=== PATIENT | female | born 1955 | race American Indian/Alaskan Native ===

== ENCOUNTER 2021-04-30 04:29 | Emergency (ER) | payer SELFPAY ==
--- NOTE | 2021-04-30 06:21 | Emergency Department Report ---
ED General Adult HPI - General Chief complaint: Altered Mental Status Stated complaint: ALTERED MENTAL STATUS PUI?: No Time Seen by Provider: 04/30/21 06:06 Source: patient, EMS Mode of arrival: Stretcher Limitations: Altered Mental Status - History of Present Illness Initial comments: Chief complaint: Found outside, possible intoxication HPI: This is a 66-year-old male with no significant past medical history who presents with cold exposure and possible alcohol intoxication. Patient discovered outside. Limited history obtained from EMS. Patient appears intoxicated. He keeps repeating his address. Discovered to be hypothermic. EMS wrapped left foot. Left foot covered in blood. -: unknown Consistency: constant Improves with: none Worsens with: none - Related Data Allergies Allergy/AdvReac Type Severity Reaction Status Date / Time No Known Allergies Allergy Verified 04/30/21 04:36 ED Review of Systems ROS: Stated complaint: ALTERED MENTAL STATUS Other details as noted in HPI Comment: Unobtainable due to pts medical conditions ED Past Medical Hx - Past Medical History Additional medical history: Unable to obtain - Surgical History Additional Surgical History: Unable to obtain - Social History Smoking Status: Unknown if ever smoked Substance Use Type: Other (Unable to obtain) ED Physical Exam - General Limitations: Altered Mental Status General appearance: appears intoxicated, lethargic, other (Arousable, will attempt to answer questions, GCS 15 protecting airway, bear hugger in place) - Head Head exam: Present: atraumatic, normocephalic - Eye Eye exam: Present: normal appearance - ENT ENT exam: Present: mucous membranes moist - Neck Neck exam: Present: normal inspection, full ROM - Respiratory Respiratory exam: Present: normal lung sounds bilaterally. Absent: respiratory distress, wheezes, rales, rhonchi - Cardiovascular Cardiovascular Exam: Present: regular rate, normal rhythm, normal heart sounds. Absent: systolic murmur, diastolic murmur, rubs, gallop - GI/Abdominal GI/Abdominal exam: Present: soft, normal bowel sounds. Absent: distended, tenderness, guarding, rebound - Extremities Exam Extremities exam: Present: other (Left foot: Covered in dried blood no obvious laceration,) - Neurological Exam Neurological exam: Present: altered, other (Oriented to name only) - Psychiatric Psychiatric exam: Present: other (Labile mood) - Skin Skin exam: Present: warm, dry, intact, normal color. Absent: rash ED Course Vital Signs 04/30/21 04/30/21 04/30/21 05:18 05:30 06:00 Temperature 89.0 F L Pulse Rate 96 H Respiratory 18 Rate Blood Pressure 90/64 90/43 Blood Pressure 92/60 [Right] O2 Sat by Pulse 95 94 92 Oximetry 04/30/21 04/30/21 04/30/21 06:28 06:30 07:00 Temperature 97.5 F L Pulse Rate 88 88 Respiratory 18 Rate Blood Pressure 108/74 82/52 Blood Pressure 90/63 108/74 [Right] O2 Sat by Pulse 96 96 91 Oximetry 04/30/21 04/30/21 04/30/21 07:05 07:30 07:32 Temperature 97.5 F L 97.3 F L Pulse Rate Respiratory Rate Blood Pressure 108/66 Blood Pressure [Right] O2 Sat by Pulse 91 Oximetry 04/30/21 04/30/21 04/30/21 07:41 07:46 08:00 Temperature Pulse Rate Respiratory Rate Blood Pressure 104/70 114/71 Blood Pressure [Right] O2 Sat by Pulse 93 94 91 Oximetry 04/30/21 04/30/21 08:16 08:30 Temperature Pulse Rate Respiratory Rate Blood Pressure 97/62 101/64 Blood Pressure [Right] O2 Sat by Pulse 90 89 Oximetry - Reevaluation(s) Reevaluation #1: 04/30/21 07:56 Oral temperature close to normal 97.5 F. Hypotension resolved with IV fluid therapy. Reevaluation #2: 04/30/21 08:01 Nurse informed me that patient is now more awake. He recalls drinking with his son-in-law. He has a history of hypertension and diabetes mellitus. He works in the [employer] system. He still has mild confusion. He is amnestic of certain events. ED Medical Decision Making - Lab Data Result diagrams: 04/30/21 07:38 04/30/21 07:38 - Medical Decision Making 1. Acute hypothermia due to cold exposure. Patient was found outside according to EMS report. Hypothermia resolved with warming measures including Homer hugger. 2. Acute alcohol intoxication: Blood alcohol level 0.21 3. Hypotension due to hypovolemia and third spacing addressed with IV fluid normal saline bolus. I reevaluated Mr. Suarez. He explains that he drinks on a monthly basis. He admits that he likely had too much to drink. His daughter is here to take him home. He is GCS 15. Awake alert insightful cooperative. Critical Care Time: Yes Critical care time in (mins) excluding proc time.: 40 Critical care attestation.: If time is entered above; I have spent that time in minutes in the direct care of this critically ill patient, excluding procedure time. 40 minutes of critical care time excluding procedures were used in the care of the patient. I discussed treatment plan with the nursing team members. I reviewed electronic record. I was concerned for sepsis, traumatic injury, endocrine process. Patient required multiple interventions and reassessments. ED Disposition Clinical Impression: Hypothermia due to cold environment, Acute alcohol intoxication, Alcohol int oxication delirium, acute, hypoactive, Dehydration Disposition: 01 HOME / SELF CARE / HOMELESS Is pt being admited?: No Does the pt Need Aspirin: No Condition: Stable Instructions: Alcohol Intoxication, [id number] Referrals: PRIMARY CAREMD [Primary Care Provider] - 3-5 Days CAMELIA BRAR MD [Staff Physician] - 3-5 Days
[2021-04-30] MEDS ORDERED: SODIUM CHLORIDE 0.9% 1000 ML 1,000 ML IV ONE (06:25)
[2021-04-30 08:05] LABS: Basophils % (Auto) 0.1 % (0.0-1.8); Eosinophils % (Auto) 0.1 % (0.0-4.3); Hematocrit 40.9 % (30.3-42.9); Hemoglobin 13.2 gm/dl (10.1-14.3); Lymphocytes % (Auto) 18.2 % (13.4-35.0); Mean Corpuscular HGB Conc 32 % (30-34); Mean Corpuscular Volume 90 fl (79-97); Monocytes # (Auto) 0.9 K/mm3 (0.0-0.8); Platelet Count 268 K/mm3 (140-440); Red Blood Count 4.53 M/mm3 (3.65-5.03); Red Cell Distribution Width 15.2 % (13.2-15.2)
[2021-04-30 08:30] LABS: Alanine Aminotransferase 28 units/L (7-56); Albumin 4.3 g/dL (3.9-5); BUN/Creatinine Ratio 18; Blood Urea Nitrogen 18 mg/dL (7-17); Calcium 9.3 mg/dL (8.4-10.2); Hemolysis Index 12
[2021-04-30 12:16] LABS: Amphetamine Screen,Urine Negative; Benzodiazepines Screen,Urine Negative; Cannabinoid Screen,Urine Negative; Cocaine Screen,Urine Negative; Methadone Screen,Urine Negative; Opiate Screen,Urine Negative
[2021-04-30 12:37] LABS: Bilirubin,Urine NEG (Negative); Blood,Urine LG (Negative); Color,Urine Yellow (Yellow); Mucus,Urine FEW /HPF; Urobilinogen,Urine < 2.0 mg/dL (<2.0)
[2021-04-30 15:00] VITALS: BP 126/76
== END 2021-04-30 13:30 | disposition home or self-care (01) ==
LOC: ED 04:29
DX: F10.121 Alcohol abuse with intoxication delirium (principal); T68.XXXA Hypothermia, initial encounter; E86.0 Dehydration
CPT/HCPCS: 36415; 80053; 80307; 81001; 85025; 96360; 96361; 99284; J7030; 80320; Q0162; G0480